=== PATIENT | male | born 1970 | race Caucasian/White ===

== ENCOUNTER 2016-08-12 14:24 | Emergency (ER) | payer OTHER ==
[2016-08-12 14:33] VITALS: BP 115/68
--- NOTE | 2016-08-12 15:24 | ED ---
Bite Injury/Animal - HPI Summary HPI Summary: 46M presents with dog bite on Friday in [place]. He was seen in the ED there and told to continue doxycycline he was on for another infection and given a tetanus. They called the health department there since this was an unknown dog and they told him they would try to find the dog. The health department was unable to locate the dog and told him to go to the nearest ER to have the rabies vaccine. - History of Current Complaint Chief Complaint: EDAnimalBite Stated Complaint: DOG BITE FINGER Time Seen by Provider: 08/12/16 15:02 Pain Intensity: 0 - Allergies/Home Medications Allergies/Adverse Reactions: Allergies Allergy/AdvReac Type Severity Reaction Status Date / Time No Known Allergies Allergy Verified 01/26/14 16:40 PMH/Surg Hx/FS Hx/Imm Hx Endocrine/Hematology History: Denies: Hx Diabetes, Hx Thyroid Disease Cardiovascular History: Denies: Hx Hypertension Respiratory History: Denies: Hx Asthma, Hx Chronic Obstructive Pulmonary Disease (COPD) GI History: Denies: Hx Ulcer Infectious Disease History: No Infectious Disease History: Reports: History Other Infectious Disease - Herpes Denies: Hx Hepatitis, Hx Human Immunodeficiency Virus (HIV), Traveled Outside the in Last 30 Days - Family History Known Family History: Positive: Hypertension - Social History Alcohol Use: None Substance Use Type: Reports: None Smoking Status (MU): Never Smoked Tobacco Review of Systems Negative: Fever Negative: Chest Pain Negative: Shortness Of Breath Positive: Other - wound from dog bite All Other Systems Reviewed And Are Negative: Yes Physical Exam Triage Information Reviewed: Yes Vital Signs On Initial Exam: Initial Vitals Temp Pulse Resp BP Pulse Ox 97.9 F 79 20 115/68 97 08/12/16 14:30 08/12/16 14:30 08/12/16 14:30 08/12/16 14:30 08/12/16 14:30 Vital Signs Reviewed: Yes Appearance: Positive: Well-Appearing Skin: Positive: Warm, Dry Head/Face: Positive: Normal Head/Face Inspection Eyes: Positive: Normal, Conjunctiva Clear Respiratory/Lung Sounds: Positive: Clear to Auscultation, Breath Sounds Present Cardiovascular: Positive: Normal, RRR Musculoskeletal: Positive: Strength/ROM Intact - of right finger, Other - two lesions present on tip of right index finger that are scabbed over, no surrounding erythema or pus present Diagnostics - Vital Signs Vital Signs Temp Pulse Resp BP Pulse Ox 08/12/16 14:30 97.9 F 79 20 115/68 97 - Laboratory Lab Statement: Any lab studies that have been ordered have been reviewed, and results considered in the medical decision making process. Bite Injury Course/Dx - Course Course Of Treatment: 26M presents for rabies vaccine after dog bite on Friday in [place]. Unable to locate dog so health department in [place] said to give rabies. Called health department in [place] and they said to give the rabies. called pharmacy to confirm rabbies immunoglobilin dose which was given along with rabies vaccine. told to follow up with health department for continue vaccination. patient understands and agrees with plan - Diagnoses Differential Diagnosis/HQI/PQRI: Positive: Puncture, Rabies Exposure Provider Diagnosis: Need for post exposure prophylaxis for rabies Discharge - Discharge Plan Condition: Good Disposition: HOME Patient Education Materials: Rabies Vaccine (ED) Referrals: No Primary Care Phys,NOPCP [Primary Care Provider] - Additional Instructions: Follow up with [place] health department on day 3, 7 and day 14 Can take ibuprofen or Tylenol for pain every 6 hours Return to ED if develop any signs of infection or any new or worsening symptoms
[2016-08-12] MEDS ORDERED: Rabies Vaccine (RabAvert)* 2.5 UNITS VIAL IM ONE (15:33)
[2016-08-12] MEDS ORDERED: Rabies Immune Globulin 10 ML* 150 UNIT/ML VIAL IM ONE (15:33)
== END 2016-08-12 16:27 | disposition home or self-care (01) ==
LOC: ED 14:24
DX: S61.259A Open bite of unspecified finger without damage to nail, initial encounter (principal); Z20.3 Contact with and (suspected) exposure to rabies; W54.0XXA Bitten by dog, initial encounter; Y93.9 Activity, unspecified; Y92.9 Unspecified place or not applicable; Y99.9 Unspecified external cause status
CPT/HCPCS: 90375; 90471; 90675; 99283

== ENCOUNTER 2016-08-14 14:01 | Emergency (ER) | payer OTHER ==
[2016-08-14 14:08] VITALS: BP 109/67
[2016-08-14] MEDS ORDERED: Rabies Immune Globulin 10 ML* 150 UNIT/ML VIAL ONE (15:00)
--- NOTE | 2016-08-14 22:15 | ED ---
Medical Screening - HPI Summary HPI Summary: Patient arrives in the ED per ED after health department called stating he had not received enough immuno globulin and it was not presented in the wound. Patient comes today for follow up to receive the remaining immuno globulin rabies vaccine in the wound. - History of Current Complaint Chief Complaint: EDAnimalBite Stated Complaint: RABIES SHOT Onset/Duration: Started Days Ago Severity: mild PMH/Surg Hx/FS Hx/Imm Hx Previously Healthy: Yes Endocrine/Hematology History: Denies: Hx Diabetes, Hx Thyroid Disease Cardiovascular History: Denies: Hx Hypertension Respiratory History: Denies: Hx Asthma, Hx Chronic Obstructive Pulmonary Disease (COPD) GI History: Denies: Hx Ulcer Infectious Disease History: No Infectious Disease History: Reports: History Other Infectious Disease - Herpes Denies: Hx Hepatitis, Hx Human Immunodeficiency Virus (HIV), Traveled Outside the [place] in Last 30 Days - Family History Known Family History: Positive: Hypertension - Social History Alcohol Use: None Substance Use Type: Reports: None Smoking Status (MU): Never Smoked Tobacco Review of Systems Constitutional: Negative Eyes: Negative Cardiovascular: Negative Respiratory: Negative Positive: see HPI Musculoskeletal: Negative Positive: Other - 2 small lacerations healing well over right index finger Neurological: Negative Psychological: Normal All Other Systems Reviewed And Are Negative: Yes Physical Exam Triage Information Reviewed: Yes Vital Signs On Initial Exam: Initial Vitals Temp Pulse Resp BP Pulse Ox 98.3 F 60 16 109/67 98 08/14/16 14:04 08/14/16 14:04 08/14/16 14:04 08/14/16 14:04 08/14/16 14:04 Vital Signs Reviewed: Yes Appearance: Positive: Well-Appearing, Well-Nourished Skin: Positive: Warm, Skin Color Reflects Adequate Perfusion, Other - 2 small 1cm lacerations to right index Head/Face: Positive: Normal Head/Face Inspection Neck: Positive: Supple Respiratory/Lung Sounds: Positive: Breath Sounds Present Cardiovascular: Positive: Normal Musculoskeletal: Positive: Normal, Strength/ROM Intact Neurological: Positive: Normal, Sensory/Motor Intact Psychiatric: Positive: Normal AVPU Assessment: Alert - [place] Coma Scale Best Eye Response: 4 - Spontaneous Best Motor Response: 6 - Obeys Commands Best Verbal Response: 5 - Oriented Procedures - Procedure Summary Procedure Summary: Provider injected .6ml immuno globulin directly into both small wounds in the right index finger. Patient tolerated well. Diagnostics - Vital Signs Vital Signs Temp Pulse Resp BP Pulse Ox 08/14/16 14:04 98.3 F 60 16 109/67 98 - Laboratory Lab Statement: Any lab studies that have been ordered have been reviewed, and results considered in the medical decision making process. Course/Dx - Course Course Of Treatment: Provider injected .6ml immuno globulin directly into both small wounds in the right index finger. Patient tolerated well. - Diagnoses Provider Diagnoses: Rabies, need for prophylactic vaccination against Discharge - Discharge Plan Condition: Stable Disposition: HOME Patient Education Materials: Rabies Immune Globulin (By injection) Referrals: No Primary Care Phys,NOPCP [Primary Care Provider] - Additional Instructions: If you develop any symptoms as listed, please come back to ED immediately.
== END 2016-08-14 15:20 | disposition home or self-care (01) ==
LOC: ED 14:01
DX: Z20.3 Contact with and (suspected) exposure to rabies (principal)
CPT/HCPCS: 90375; 96372; 99282